=== PATIENT | female | born 1940 | race Caucasian/White ===

== ENCOUNTER 2017-03-16 13:30 | Outpatient (CLI) | payer OTHER ==
[~2017-03-16 13:30] MED LIST: CARTIA XT240 MG; COREG CR20 MG; DAFLONEX 600 MG1 TAB; GLUCOPHAGE XR500 MG; MICARDIS HCT1 UDTA2; MICARDIS80 MG; TRAMADOL HCL-AP1 TAB; XANAX0.25 MG
== END 2017-03-16 14:00 | disposition home or self-care (01) ==
LOC: NUCLEAR 13:30
DX: I82.622 Acute embolism and thrombosis of deep veins of left upper extremity (principal); I80.8 Phlebitis and thrombophlebitis of other sites

== ENCOUNTER 2017-06-13 15:37 | Outpatient (CLI) | payer OTHER | END 2017-06-13 15:55 | disposition home or self-care (01) | LOC: LAB 15:37 | DX: I10 Essential (primary) hypertension (principal); E03.8 Other specified hypothyroidism; M54.5 Low back pain; E55.9 Vitamin D deficiency, unspecified; E11.51 Type 2 diabetes mellitus with diabetic peripheral angiopathy without gangrene; E11.9 Type 2 diabetes mellitus without complications; E66.8 Other obesity; E11.42 Type 2 diabetes mellitus with diabetic polyneuropathy; E66.9 Obesity, unspecified; K21.9 Gastro-esophageal reflux disease without esophagitis; L03.313 Cellulitis of chest wall; Z85.3 Personal history of malignant neoplasm of breast; E04.1 Nontoxic single thyroid nodule; N39.0 Urinary tract infection, site not specified; E78.89 Other lipoprotein metabolism disorders; M89.8X9 Other specified disorders of bone, unspecified site; F41.8 Other specified anxiety disorders; M15.8 Other polyosteoarthritis; G47.09 Other insomnia; I50.89 Other heart failure; I49.8 Other specified cardiac arrhythmias ==

== ENCOUNTER 2017-06-22 15:18 | Outpatient (CLI) | payer OTHER | END 2017-06-22 15:53 | disposition home or self-care (01) | LOC: LAB 15:18 | DX: E03.8 Other specified hypothyroidism (principal); M54.5 Low back pain; E55.9 Vitamin D deficiency, unspecified; E11.51 Type 2 diabetes mellitus with diabetic peripheral angiopathy without gangrene; E11.9 Type 2 diabetes mellitus without complications; E66.8 Other obesity; E11.42 Type 2 diabetes mellitus with diabetic polyneuropathy; K21.9 Gastro-esophageal reflux disease without esophagitis; L03.313 Cellulitis of chest wall; Z85.3 Personal history of malignant neoplasm of breast; E04.1 Nontoxic single thyroid nodule; M89.8X9 Other specified disorders of bone, unspecified site; F41.8 Other specified anxiety disorders; M15.8 Other polyosteoarthritis; G47.09 Other insomnia; I50.89 Other heart failure; I49.8 Other specified cardiac arrhythmias ==

== ENCOUNTER 2017-08-06 10:44 | Outpatient (CLI) | payer OTHER | END 2017-08-06 10:49 | disposition home or self-care (01) | LOC: LAB 10:44 | DX: M50.90 Cervical disc disorder, unspecified, unspecified cervical region (principal); M17.10 Unilateral primary osteoarthritis, unspecified knee; M51.36 Other intervertebral disc degeneration, lumbar region; E55.9 Vitamin D deficiency, unspecified; M10.09 Idiopathic gout, multiple sites; R70.0 Elevated erythrocyte sedimentation rate; I10 Essential (primary) hypertension; E78.89 Other lipoprotein metabolism disorders; E03.8 Other specified hypothyroidism; M54.5 Low back pain; E11.51 Type 2 diabetes mellitus with diabetic peripheral angiopathy without gangrene; E11.9 Type 2 diabetes mellitus without complications; E11.42 Type 2 diabetes mellitus with diabetic polyneuropathy; E66.8 Other obesity; K21.9 Gastro-esophageal reflux disease without esophagitis; L03.313 Cellulitis of chest wall; Z85.3 Personal history of malignant neoplasm of breast; E04.1 Nontoxic single thyroid nodule; N39.0 Urinary tract infection, site not specified; M60.88 Other myositis, other site; M89.8X8 Other specified disorders of bone, other site; F41.8 Other specified anxiety disorders; M15.8 Other polyosteoarthritis; G47.09 Other insomnia; I50.89 Other heart failure; I49.8 Other specified cardiac arrhythmias ==

== ENCOUNTER 2017-08-06 15:11 | Outpatient (CLI) | payer OTHER | END 2017-08-06 15:27 | disposition home or self-care (01) | LOC: RAD 501 15:11 | DX: M50.90 Cervical disc disorder, unspecified, unspecified cervical region (principal); M51.36 Other intervertebral disc degeneration, lumbar region; M66.9 Spontaneous rupture of unspecified tendon; M17.0 Bilateral primary osteoarthritis of knee; M19.141 Post-traumatic osteoarthritis, right hand; M19.142 Post-traumatic osteoarthritis, left hand; M60.88 Other myositis, other site ==

== ENCOUNTER 2018-04-20 12:38 | Outpatient (CLI) | payer OTHER | END 2018-04-20 12:45 | disposition home or self-care (01) | LOC: LAB 12:38 | DX: E78.89 Other lipoprotein metabolism disorders (principal); I10 Essential (primary) hypertension; E03.8 Other specified hypothyroidism; M54.5 Low back pain; E55.9 Vitamin D deficiency, unspecified; M89.8X8 Other specified disorders of bone, other site; E11.51 Type 2 diabetes mellitus with diabetic peripheral angiopathy without gangrene; E11.9 Type 2 diabetes mellitus without complications; E66.8 Other obesity; E11.42 Type 2 diabetes mellitus with diabetic polyneuropathy; F41.8 Other specified anxiety disorders; K21.9 Gastro-esophageal reflux disease without esophagitis; M15.8 Other polyosteoarthritis; G47.00 Insomnia, unspecified; I50.89 Other heart failure; I49.8 Other specified cardiac arrhythmias; L03.313 Cellulitis of chest wall; Z85.3 Personal history of malignant neoplasm of breast; E04.1 Nontoxic single thyroid nodule; N39.0 Urinary tract infection, site not specified; B96.29 Other Escherichia coli [E. coli] as the cause of diseases classified elsewhere ==

== ENCOUNTER → 2018-08-10 08:39 | Outpatient (CLI) | payer OTHER | END | disposition home or self-care (01) | LOC: LAB 08:39 | DX: N39.0 Urinary tract infection, site not specified (principal); E04.1 Nontoxic single thyroid nodule; N61.0 Mastitis without abscess; M15.8 Other polyosteoarthritis; M54.5 Low back pain; M89.8X8 Other specified disorders of bone, other site; E03.8 Other specified hypothyroidism; E11.42 Type 2 diabetes mellitus with diabetic polyneuropathy; E11.51 Type 2 diabetes mellitus with diabetic peripheral angiopathy without gangrene; E55.9 Vitamin D deficiency, unspecified; E66.8 Other obesity; E78.89 Other lipoprotein metabolism disorders; F41.8 Other specified anxiety disorders; G47.00 Insomnia, unspecified; I49.8 Other specified cardiac arrhythmias; I50.89 Other heart failure; K21.9 Gastro-esophageal reflux disease without esophagitis; Z68.37 Body mass index [BMI] 37.0-37.9, adult; Z12.11 Encounter for screening for malignant neoplasm of colon ==

== ENCOUNTER 2018-11-01 17:16 | Emergency (ER) | payer OTHER ==
[~2018-11-01] VITALS: Ht 165.1 cm; Wt 108.9 kg
[2018-11-01] MEDS ORDERED: XARELTO15 MG (18:04)
[2018-11-01] MEDS ORDERED: SYNTHROID300 MCG (18:05)
[2018-11-01] MEDS ORDERED: PNEU16DI2 (18:05)
== END 2018-11-01 18:41 | disposition home or self-care (01) ==
LOC: ER 17:16
DX: S80.02XA Contusion of left knee, initial encounter (principal); S40.012A Contusion of left shoulder, initial encounter; S29.8XXA Other specified injuries of thorax, initial encounter; W10.8XXA Fall (on) (from) other stairs and steps, initial encounter; Y93.89 Activity, other specified; Y92.018 Other place in single-family (private) house as the place of occurrence of the external cause; Y99.8 Other external cause status

== ENCOUNTER → 2018-12-05 13:05 | Outpatient (CLI) | payer OTHER ==
[~2018-12-05 13:05] MED LIST changes: +PNEU16DI2; +SYNTHROID300 MCG; +XARELTO15 MG
== END | disposition home or self-care (01) ==
LOC: LAB 13:05
DX: E03.8 Other specified hypothyroidism (principal); I10 Essential (primary) hypertension; E11.9 Type 2 diabetes mellitus without complications; E55.9 Vitamin D deficiency, unspecified

== ENCOUNTER 2019-04-05 08:31 | Outpatient (CLI) | payer OTHER | END 2019-04-05 08:36 | disposition home or self-care (01) | LOC: LAB 08:31 | DX: N39.0 Urinary tract infection, site not specified (principal); E04.1 Nontoxic single thyroid nodule; M15.8 Other polyosteoarthritis; M89.8X8 Other specified disorders of bone, other site; E03.8 Other specified hypothyroidism; E11.42 Type 2 diabetes mellitus with diabetic polyneuropathy; E11.51 Type 2 diabetes mellitus with diabetic peripheral angiopathy without gangrene; E55.9 Vitamin D deficiency, unspecified; E66.8 Other obesity; E78.89 Other lipoprotein metabolism disorders; F41.8 Other specified anxiety disorders; G47.00 Insomnia, unspecified; I49.8 Other specified cardiac arrhythmias; I50.89 Other heart failure; K21.9 Gastro-esophageal reflux disease without esophagitis; I11.9 Hypertensive heart disease without heart failure; Z68.37 Body mass index [BMI] 37.0-37.9, adult ==

== ENCOUNTER 2019-04-23 12:27 | Outpatient (CLI) | payer OTHER | END 2019-04-23 15:59 | disposition home or self-care (01) | LOC: SONOGRAMA 12:27 | DX: M50.90 Cervical disc disorder, unspecified, unspecified cervical region (principal); M60.88 Other myositis, other site; M17.10 Unilateral primary osteoarthritis, unspecified knee; M51.36 Other intervertebral disc degeneration, lumbar region; M71.50 Other bursitis, not elsewhere classified, unspecified site; M75.50 Bursitis of unspecified shoulder; M75.32 Calcific tendinitis of left shoulder; M75.102 Unspecified rotator cuff tear or rupture of left shoulder, not specified as traumatic ==

== ENCOUNTER → 2019-08-30 09:12 | Outpatient (CLI) | payer OTHER | END | disposition home or self-care (01) | LOC: LAB 09:12 | PROVIDERS: ATTEND Internal Medicine | DX: N39.0 Urinary tract infection, site not specified (principal); E04.1 Nontoxic single thyroid nodule; M54.5 Low back pain; M89.8X8 Other specified disorders of bone, other site; E03.8 Other specified hypothyroidism; E11.42 Type 2 diabetes mellitus with diabetic polyneuropathy; E11.51 Type 2 diabetes mellitus with diabetic peripheral angiopathy without gangrene; E55.9 Vitamin D deficiency, unspecified; E66.8 Other obesity; E66.9 Obesity, unspecified; E78.89 Other lipoprotein metabolism disorders; F41.8 Other specified anxiety disorders; G47.00 Insomnia, unspecified; I49.8 Other specified cardiac arrhythmias; I50.89 Other heart failure; K21.9 Gastro-esophageal reflux disease without esophagitis; I11.9 Hypertensive heart disease without heart failure; Z68.37 Body mass index [BMI] 37.0-37.9, adult; M50.90 Cervical disc disorder, unspecified, unspecified cervical region; M60.88 Other myositis, other site; M17.10 Unilateral primary osteoarthritis, unspecified knee; M51.36 Other intervertebral disc degeneration, lumbar region; D50.8 Other iron deficiency anemias; E78.49 Other hyperlipidemia; E53.8 Deficiency of other specified B group vitamins; R70.0 Elevated erythrocyte sedimentation rate; D64.89 Other specified anemias; C73 Malignant neoplasm of thyroid gland ==

== ENCOUNTER → 2019-09-03 | Outpatient (CLI) | payer OTHER | END | disposition home or self-care (01) | LOC: SONOGRAMA 12:03 → MAMO-SONO 13:45 | PROVIDERS: ATTEND Internal Medicine | DX: C73 Malignant neoplasm of thyroid gland (principal); E04.2 Nontoxic multinodular goiter ==

== ENCOUNTER 2019-09-11 10:59 | Outpatient (CLI) | payer OTHER | END 2019-09-11 11:10 | disposition home or self-care (01) | LOC: MRI 10:59 | PROVIDERS: ATTEND Physical Medicine & Rehabilitation | DX: M75.122 Complete rotator cuff tear or rupture of left shoulder, not specified as traumatic (principal); M75.112 Incomplete rotator cuff tear or rupture of left shoulder, not specified as traumatic | CPT/HCPCS: 73218 ==

== ENCOUNTER 2019-10-21 12:09 | Outpatient (CLI) | payer OTHER | END 2019-10-21 12:17 | disposition home or self-care (01) | LOC: RAD 12:09 | PROVIDERS: ATTEND Physical Medicine & Rehabilitation | DX: M75.31 Calcific tendinitis of right shoulder (principal) ==

== ENCOUNTER 2019-11-22 09:29 | Outpatient (CLI) | payer OTHER | END 2019-11-22 13:42 | disposition home or self-care (01) | LOC: LAB 09:29 | DX: I10 Essential (primary) hypertension (principal); G47.33 Obstructive sleep apnea (adult) (pediatric); E03.8 Other specified hypothyroidism ==

== ENCOUNTER 2020-01-21 10:31 | Outpatient (CLI) | payer OTHER | END 2020-01-21 10:39 | disposition home or self-care (01) | LOC: LAB 10:31 | PROVIDERS: ATTEND Internal Medicine | DX: E03.8 Other specified hypothyroidism (principal); N39.0 Urinary tract infection, site not specified; E04.1 Nontoxic single thyroid nodule; M15.8 Other polyosteoarthritis; I50.89 Other heart failure; M54.5 Low back pain; M89.8X8 Other specified disorders of bone, other site; E11.42 Type 2 diabetes mellitus with diabetic polyneuropathy; E11.51 Type 2 diabetes mellitus with diabetic peripheral angiopathy without gangrene; E55.9 Vitamin D deficiency, unspecified; E66.8 Other obesity; E78.89 Other lipoprotein metabolism disorders; F41.8 Other specified anxiety disorders; G47.00 Insomnia, unspecified; I49.8 Other specified cardiac arrhythmias; K21.9 Gastro-esophageal reflux disease without esophagitis; I11.9 Hypertensive heart disease without heart failure; G30.0 Alzheimer's disease with early onset; I50.30 Unspecified diastolic (congestive) heart failure; H43.813 Vitreous degeneration, bilateral; Z68.37 Body mass index [BMI] 37.0-37.9, adult; Z12.11 Encounter for screening for malignant neoplasm of colon ==

== ENCOUNTER 2020-01-28 15:22 | Outpatient (CLI) | payer OTHER | END 2020-01-28 15:24 | disposition home or self-care (01) | LOC: LAB 15:22 | PROVIDERS: ATTEND Internal Medicine | DX: F41.8 Other specified anxiety disorders (principal); N39.0 Urinary tract infection, site not specified; Z12.11 Encounter for screening for malignant neoplasm of colon; E04.1 Nontoxic single thyroid nodule; M15.8 Other polyosteoarthritis; M54.5 Low back pain; M89.8X8 Other specified disorders of bone, other site; E03.8 Other specified hypothyroidism; E11.42 Type 2 diabetes mellitus with diabetic polyneuropathy; E11.51 Type 2 diabetes mellitus with diabetic peripheral angiopathy without gangrene; E55.9 Vitamin D deficiency, unspecified; E66.8 Other obesity; E78.89 Other lipoprotein metabolism disorders; G47.00 Insomnia, unspecified; I49.8 Other specified cardiac arrhythmias; I50.89 Other heart failure; H43.813 Vitreous degeneration, bilateral; Z68.37 Body mass index [BMI] 37.0-37.9, adult ==

== ENCOUNTER 2020-02-09 12:35 | Outpatient (CLI) | payer OTHER | END 2020-02-09 12:44 | disposition home or self-care (01) | LOC: RAD 12:35 | PROVIDERS: ATTEND Physical Medicine & Rehabilitation | DX: M43.17 Spondylolisthesis, lumbosacral region (principal); D25.9 Leiomyoma of uterus, unspecified; M51.34 Other intervertebral disc degeneration, thoracic region ==

== ENCOUNTER 2020-03-12 16:16 | Emergency (ER) | payer OTHER ==
[~2020-03-12] VITALS: Ht 162.6 cm; Wt 99.8 kg
[2020-03-12] MEDS ORDERED: COZAAR50 MG (16:49)
[2020-03-12] MEDS ORDERED: ARICEPT5 MG (16:49)
== END 2020-03-13 10:44 | disposition home or self-care (01) ==
LOC: ER 16:16
DX: R10.11 Right upper quadrant pain (principal); M54.89 Other dorsalgia; R42 Dizziness and giddiness; Z03.818 Encounter for observation for suspected exposure to other biological agents ruled out

== ENCOUNTER 2020-05-07 09:35 | Outpatient (CLI) | payer OTHER ==
[~2020-05-07 09:35] MED LIST changes: +ARICEPT5 MG; +COZAAR50 MG
== END 2020-05-07 18:00 | disposition home or self-care (01) ==
LOC: LAB 09:35
PROVIDERS: ATTEND Internal Medicine
DX: N39.0 Urinary tract infection, site not specified (principal); B96.29 Other Escherichia coli [E. coli] as the cause of diseases classified elsewhere; E11.42 Type 2 diabetes mellitus with diabetic polyneuropathy; D44.12 Neoplasm of uncertain behavior of left adrenal gland; E04.1 Nontoxic single thyroid nodule; M15.8 Other polyosteoarthritis; M54.5 Low back pain; M89.8X8 Other specified disorders of bone, other site; E03.8 Other specified hypothyroidism; E11.51 Type 2 diabetes mellitus with diabetic peripheral angiopathy without gangrene; E11.9 Type 2 diabetes mellitus without complications; E55.9 Vitamin D deficiency, unspecified; E66.8 Other obesity; E78.89 Other lipoprotein metabolism disorders; F41.8 Other specified anxiety disorders; G47.00 Insomnia, unspecified; I49.8 Other specified cardiac arrhythmias; I50.89 Other heart failure; K21.9 Gastro-esophageal reflux disease without esophagitis; I11.9 Hypertensive heart disease without heart failure; G30.0 Alzheimer's disease with early onset; I50.30 Unspecified diastolic (congestive) heart failure; H43.813 Vitreous degeneration, bilateral; F33.0 Major depressive disorder, recurrent, mild; Z68.37 Body mass index [BMI] 37.0-37.9, adult; Z12.11 Encounter for screening for malignant neoplasm of colon

== ENCOUNTER 2020-06-15 15:57 | Outpatient (CLI) | payer OTHER | END 2020-06-15 18:00 | disposition home or self-care (01) | LOC: LAB 15:57 | PROVIDERS: ATTEND Internal Medicine | DX: N39.0 Urinary tract infection, site not specified (principal); Z12.11 Encounter for screening for malignant neoplasm of colon; E04.1 Nontoxic single thyroid nodule; M15.9 Polyosteoarthritis, unspecified; M54.5 Low back pain; M89.9 Disorder of bone, unspecified; E03.9 Hypothyroidism, unspecified; E11.42 Type 2 diabetes mellitus with diabetic polyneuropathy; E11.51 Type 2 diabetes mellitus with diabetic peripheral angiopathy without gangrene; E55.9 Vitamin D deficiency, unspecified; E66.8 Other obesity; E78.9 Disorder of lipoprotein metabolism, unspecified; F41.9 Anxiety disorder, unspecified; G47.00 Insomnia, unspecified; I49.9 Cardiac arrhythmia, unspecified; I50.9 Heart failure, unspecified; K21.9 Gastro-esophageal reflux disease without esophagitis; I11.9 Hypertensive heart disease without heart failure; G30.0 Alzheimer's disease with early onset; I50.30 Unspecified diastolic (congestive) heart failure; H43.813 Vitreous degeneration, bilateral; F33.0 Major depressive disorder, recurrent, mild; Z68.37 Body mass index [BMI] 37.0-37.9, adult ==

== ENCOUNTER 2020-08-10 14:36 | Emergency (ER) | payer OTHER ==
[~2020-08-10] VITALS: Ht 167.6 cm; Wt 97.5 kg
== END 2020-08-10 21:20 | disposition home or self-care (01) ==
LOC: ER 14:36
DX: K29.70 Gastritis, unspecified, without bleeding (principal); R10.13 Epigastric pain; R11.2 Nausea with vomiting, unspecified

== ENCOUNTER 2020-10-02 09:54 | Outpatient (CLI) | payer OTHER | END 2020-10-02 15:00 | disposition home or self-care (01) | LOC: LAB 09:54 | DX: N39.0 Urinary tract infection, site not specified (principal); B96.29 Other Escherichia coli [E. coli] as the cause of diseases classified elsewhere; E04.1 Nontoxic single thyroid nodule; M15.8 Other polyosteoarthritis; M54.5 Low back pain; M89.8X8 Other specified disorders of bone, other site; E03.8 Other specified hypothyroidism; E11.42 Type 2 diabetes mellitus with diabetic polyneuropathy; E11.51 Type 2 diabetes mellitus with diabetic peripheral angiopathy without gangrene; E55.9 Vitamin D deficiency, unspecified; E66.8 Other obesity; G47.00 Insomnia, unspecified; F41.8 Other specified anxiety disorders; I50.89 Other heart failure; G30.0 Alzheimer's disease with early onset; I50.30 Unspecified diastolic (congestive) heart failure; H43.813 Vitreous degeneration, bilateral; F33.0 Major depressive disorder, recurrent, mild; Z68.37 Body mass index [BMI] 37.0-37.9, adult ==

== ENCOUNTER → 2020-12-18 10:13 | Outpatient (CLI) | payer OTHER | END | disposition home or self-care (01) | LOC: LAB 10:13 | PROVIDERS: ATTEND Internal Medicine | DX: E04.1 Nontoxic single thyroid nodule (principal); N39.0 Urinary tract infection, site not specified; Z12.11 Encounter for screening for malignant neoplasm of colon; M15.8 Other polyosteoarthritis; M89.8X8 Other specified disorders of bone, other site; E03.8 Other specified hypothyroidism; E11.42 Type 2 diabetes mellitus with diabetic polyneuropathy; E11.51 Type 2 diabetes mellitus with diabetic peripheral angiopathy without gangrene; E55.9 Vitamin D deficiency, unspecified; E66.8 Other obesity; E78.89 Other lipoprotein metabolism disorders; F41.8 Other specified anxiety disorders; G47.00 Insomnia, unspecified; I49.8 Other specified cardiac arrhythmias; I50.89 Other heart failure; K21.9 Gastro-esophageal reflux disease without esophagitis; I11.9 Hypertensive heart disease without heart failure; G30.0 Alzheimer's disease with early onset; I50.30 Unspecified diastolic (congestive) heart failure; F33.0 Major depressive disorder, recurrent, mild; Z68.37 Body mass index [BMI] 37.0-37.9, adult ==

== ENCOUNTER → 2020-12-20 14:20 | Outpatient (CLI) | payer OTHER | END | disposition home or self-care (01) | LOC: LAB 14:20 | PROVIDERS: ATTEND Internal Medicine | DX: N39.0 Urinary tract infection, site not specified (principal); B96.29 Other Escherichia coli [E. coli] as the cause of diseases classified elsewhere; E04.1 Nontoxic single thyroid nodule; M15.8 Other polyosteoarthritis; M89.8X8 Other specified disorders of bone, other site; E03.8 Other specified hypothyroidism; E11.42 Type 2 diabetes mellitus with diabetic polyneuropathy; E11.51 Type 2 diabetes mellitus with diabetic peripheral angiopathy without gangrene; E11.9 Type 2 diabetes mellitus without complications; E55.9 Vitamin D deficiency, unspecified; E66.8 Other obesity; E78.89 Other lipoprotein metabolism disorders; F41.8 Other specified anxiety disorders; G47.00 Insomnia, unspecified; I49.8 Other specified cardiac arrhythmias; I50.89 Other heart failure; K21.9 Gastro-esophageal reflux disease without esophagitis; I11.9 Hypertensive heart disease without heart failure; G30.0 Alzheimer's disease with early onset; F33.0 Major depressive disorder, recurrent, mild; Z68.37 Body mass index [BMI] 37.0-37.9, adult; Z12.11 Encounter for screening for malignant neoplasm of colon ==

== ENCOUNTER 2021-06-18 10:12 | Outpatient (CLI) | payer OTHER | END 2021-06-18 10:28 | disposition home or self-care (01) | LOC: LAB 10:12 | PROVIDERS: ATTEND Internal Medicine | DX: N39.0 Urinary tract infection, site not specified (principal); E04.1 Nontoxic single thyroid nodule; M15.9 Polyosteoarthritis, unspecified; M54.50 Low back pain, unspecified; M89.9 Disorder of bone, unspecified; E03.9 Hypothyroidism, unspecified; E11.42 Type 2 diabetes mellitus with diabetic polyneuropathy; E11.51 Type 2 diabetes mellitus with diabetic peripheral angiopathy without gangrene; D55.9 Anemia due to enzyme disorder, unspecified; E66.8 Other obesity; E66.9 Obesity, unspecified; F41.9 Anxiety disorder, unspecified; G47.00 Insomnia, unspecified; I49.9 Cardiac arrhythmia, unspecified; I50.9 Heart failure, unspecified; K21.9 Gastro-esophageal reflux disease without esophagitis; I11.9 Hypertensive heart disease without heart failure; G30.0 Alzheimer's disease with early onset; I50.30 Unspecified diastolic (congestive) heart failure; H43.813 Vitreous degeneration, bilateral; F33.0 Major depressive disorder, recurrent, mild; Z68.37 Body mass index [BMI] 37.0-37.9, adult; Z12.11 Encounter for screening for malignant neoplasm of colon ==

== ENCOUNTER 2021-06-20 13:03 | Outpatient (CLI) | payer OTHER | END 2021-06-20 13:51 | disposition home or self-care (01) | LOC: LAB 13:03 | PROVIDERS: ATTEND Internal Medicine | DX: Z12.11 Encounter for screening for malignant neoplasm of colon (principal); N39.0 Urinary tract infection, site not specified ==

== ENCOUNTER 2021-06-20 13:30 | Outpatient (CLI) | payer OTHER | END 2021-06-20 13:31 | disposition home or self-care (01) | LOC: NUCLEAR 13:30 | PROVIDERS: ATTEND Internal Medicine | DX: M15.9 Polyosteoarthritis, unspecified (principal); E11.51 Type 2 diabetes mellitus with diabetic peripheral angiopathy without gangrene; E55.9 Vitamin D deficiency, unspecified; E66.8 Other obesity ==

== ENCOUNTER 2021-12-03 09:18 | Outpatient (CLI) | payer OTHER | END 2021-12-03 09:34 | disposition home or self-care (01) | LOC: LAB 09:18 | PROVIDERS: ATTEND Internal Medicine | DX: N39.0 Urinary tract infection, site not specified (principal); M15.9 Polyosteoarthritis, unspecified; M54.50 Low back pain, unspecified; E03.9 Hypothyroidism, unspecified; E11.42 Type 2 diabetes mellitus with diabetic polyneuropathy; E11.51 Type 2 diabetes mellitus with diabetic peripheral angiopathy without gangrene; E11.9 Type 2 diabetes mellitus without complications; E55.9 Vitamin D deficiency, unspecified; E66.8 Other obesity; E66.9 Obesity, unspecified; E78.9 Disorder of lipoprotein metabolism, unspecified; G47.00 Insomnia, unspecified; I49.9 Cardiac arrhythmia, unspecified; I50.9 Heart failure, unspecified; K21.9 Gastro-esophageal reflux disease without esophagitis; I11.9 Hypertensive heart disease without heart failure; F33.0 Major depressive disorder, recurrent, mild; C50.919 Malignant neoplasm of unspecified site of unspecified female breast; C73 Malignant neoplasm of thyroid gland; Z68.37 Body mass index [BMI] 37.0-37.9, adult; E11.40 Type 2 diabetes mellitus with diabetic neuropathy, unspecified; E78.2 Mixed hyperlipidemia; E89.0 Postprocedural hypothyroidism ==

== ENCOUNTER 2022-04-22 09:58 | Outpatient (CLI) | payer OTHER | END 2022-04-22 10:00 | disposition home or self-care (01) | LOC: LAB 09:58 | DX: D64.9 Anemia, unspecified (principal); E11.9 Type 2 diabetes mellitus without complications; E78.00 Pure hypercholesterolemia, unspecified; E03.9 Hypothyroidism, unspecified; D51.0 Vitamin B12 deficiency anemia due to intrinsic factor deficiency; E72.10 Disorders of sulfur-bearing amino-acid metabolism, unspecified; M13.80 Other specified arthritis, unspecified site; K76.1 Chronic passive congestion of liver ==

== ENCOUNTER 2023-05-14 10:39 | Outpatient (CLI) | payer OTHER | END 2023-05-14 10:40 | disposition home or self-care (01) | LOC: NUCLEAR 10:39 | PROVIDERS: ATTEND Internal Medicine Cardiovascular Disease | DX: I82.90 Acute embolism and thrombosis of unspecified vein (principal) ==